=== PATIENT | male | born 1960 | race Caucasian/White ===

== ENCOUNTER 2024-12-26 09:21 | Outpatient (CLI) | payer MEDICARE, OTHER ==
[2024-12-26 10:40] LABS: Estimated GFR - POC 67.0
[2024-12-26] MEDS ORDERED: Iopamidol 370 76% 100 ML VIAL ONE (11:57)
== END 2024-12-26 09:22 | disposition home or self-care (01) ==
LOC: CT 09:21
PROVIDERS: ATTEND Internal Medicine Gastroenterology
DX: K76.0 Fatty (change of) liver, not elsewhere classified (principal); R47.9 Unspecified speech disturbances; S06.5XAA Traumatic subdural hemorrhage with loss of consciousness status unknown, initial encounter; R16.2 Hepatomegaly with splenomegaly, not elsewhere classified; K74.60 Unspecified cirrhosis of liver
CPT/HCPCS: 36415; 74177; 82565; Q9967

== ENCOUNTER 2025-01-02 13:12 | Outpatient (CLI) | payer MEDICARE, OTHER ==
[2025-01-02 14:34] LABS: Estimated GFR - POC 61.0
== END 2025-01-02 13:13 | disposition home or self-care (01) ==
LOC: SCSMRI 13:12
PROVIDERS: ATTEND Internal Medicine Gastroenterology
DX: D49.0 Neoplasm of unspecified behavior of digestive system (principal); K76.0 Fatty (change of) liver, not elsewhere classified; R47.9 Unspecified speech disturbances
CPT/HCPCS: 36415; 70250; 74183; 82565